=== PATIENT | male | born 1985 | race Caucasian/White ===

== ENCOUNTER 2017-05-06 18:27 | Emergency (ER) | payer OTHER, BC ==
[~2017-05-06] VITALS: Ht 182.9 cm; Wt 78.7 kg
[2017-05-06 18:34] VITALS: TEMP 37.6; Ht 182.9 cm; Wt 78.7 kg
[2017-05-06] MEDS ORDERED: IBUPROFEN 600 MG TAB PO STA (18:54)
[2017-05-06] MEDS ORDERED: DIPHTHERIA/TETANUS/PERTUSSIS 0.5 ML SYR/VIAL IM. ONE (19:00)
--- NOTE | 2017-05-06 19:32 | DIAGNOSTIC IMAGING REPORT ---
RIGHT ELBOW 3 VIEWS CLINICAL HISTORY: Right elbow injury. FINDINGS: 3 views of the right elbow are obtained. No prior studies are available for comparison at the time of dictation. The skeletal structures are well mineralized. There is a distracted an comminuted fracture through the olecranon process of the ulna. Fragments are distracted by approximately 1.3 cm. No additional fracture is seen. There is no elbow dislocation. A joint effusion is noted. Significant soft tissue edema is present around the elbow, greatest dorsally and medially. IMPRESSION: Distracted and comminuted fracture through the olecranon process of the ulna as above. Electronically signed by: Ian Ortega M.D. 05/06/2017 7:30 PM Dictated Date/Time: 05/06/2017 7:27 PM
--- NOTE | 2017-05-06 19:43 | DIAGNOSTIC IMAGING REPORT ---
RIGHT ANKLE 3 VIEWS CLINICAL HISTORY: Right ankle injury. FINDINGS: 3 views of the right ankle are obtained. No prior studies are available for comparison at the time of dictation. The skeletal structures are well mineralized. No fracture is seen. The ankle mortise is intact. No joint effusion is identified. Soft tissue injury and edema is noted along the lateral aspect of the calf. No subcutaneous gas is identified and no radiodense foreign body is seen. IMPRESSION: Lateral soft tissue injury. No right ankle fracture is identified. Electronically signed by: Ian Ortega M.D. 05/06/2017 7:42 PM Dictated Date/Time: 05/06/2017 7:37 PM
[2017-05-06] MEDS ORDERED: BACITRACIN OINT 15 GM TUBE ONE (19:52)
[2017-05-06] MEDS ORDERED: OXYC1TAB3 PO (20:09)
[2017-05-06] MEDS ORDERED: OXYCODONE IR HOME PACK PO ONE (20:15)
[2017-05-06 21:09] VITALS: BP 141/84; PULSE 94; O2SAT 100
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
== END 2017-05-06 21:10 | disposition home or self-care (01) ==
LOC: C.EDB 18:29 → EDSEX 18:29 → C.EDD 21:10
DX: S52.021A Displaced fracture of olecranon process without intraarticular extension of right ulna, initial encounter for closed fracture (principal); T24.201A Burn of second degree of unspecified site of right lower limb, except ankle and foot, initial encounter; V29.9XXA Motorcycle rider (driver) (passenger) injured in unspecified traffic accident, initial encounter; Z87.891 Personal history of nicotine dependence; Z23 Encounter for immunization

== ENCOUNTER → 2017-05-08 | Outpatient (CLI) | payer OTHER, BC ==
[~2017-05-08] MED LIST: CEPH500C2 PO; OXYC-57 PO; OXYC1TAB3 PO; SILV1CRE73 TOP
[2017-05-08 17:43] LABS: BASO % 0.4 %; BASO ABS # 0.04 K/uL (0-0.2); EOS % 2.5 %; HEMATOCRIT 41.4 % (42-52); IG% 0.1 %; LYMPH % 23.1 %; LYMPH ABS # 2.27 K/uL (1.2-3.4); MEAN CELL VOLUME 90.6 fL (80-100); MEAN CORPUSCULAR HEMOGLOBIN 30.4 pg (25-34); MEAN PLATELET VOLUME 10.7 fL (7.4-10.4); MONO % 11.8 %; NEUT % 62.1 %; PLATELET COUNT 214 K/uL (130-400); RED BLOOD COUNT 4.57 M/uL (4.7-6.1); WHITE BLOOD COUNT 9.81 K/uL (4.8-10.8)
[2017-05-08 17:54] LABS: URINE APPEARANCE CLEAR (CLEAR); URINE BILIRUBIN NEG (NEG); URINE COLOR YELLOW; URINE NITRITE NEG (NEG); URINE SPECIFIC GRAVITY 1.012 (1.000-1.030); UROBILINOGEN NEG (NEG)
[2017-05-08 17:56] LABS: PROTHROMBIN TIME (PATIENT) 10.7 SECONDS (9.0-12.0)
[2017-05-08 18:06] LABS: BLOOD UREA NITROGEN 9 mg/dl (7-18); BUN/CREATININE RATIO 9.6 (10-20); CALCIUM 9.3 mg/dl (8.5-10.1); CARBON DIOXIDE 27 mmol/L (21-32); CHLORIDE 100 mmol/L (98-107); CREATININE 0.95 mg/dl (0.60-1.40); GLUCOSE 94 mg/dl (70-99); POTASSIUM 3.9 mmol/L (3.5-5.1); SODIUM 134 mmol/L (136-145)
--- NOTE | 2017-05-08 18:07 | DIAGNOSTIC IMAGING REPORT ---
CHEST 2 VIEWS ROUTINE CLINICAL HISTORY: Preoperative chest COMPARISON STUDY: No previous studies for comparison. FINDINGS: The cardiac and mediastinal contours are normal. There is no evidence of focal pulmonary consolidation. There is no evidence of failure. No pleural effusions are visualized.[ IMPRESSION: No active disease in the chest. Electronically signed by: Lonny Trimble M.D. 05/08/2017 6:05 PM Dictated Date/Time: 05/08/2017 6:05 PM
[2017-05-08 18:15] LABS: MANUAL MICROSCOPIC REQUIRED? NO; REVIEW REQ? NO
[2017-05-08 18:25] LABS: COMPLETE YES; MEAN CORPUSCULAR HGB CONC 33.6 g/dl (32-36)
== END | disposition home or self-care (01) ==
LOC: C.LAB 17:10
PROVIDERS: ATTEND Orthopaedic Surgery Sports Medicine
DX: S52.021A Displaced fracture of olecranon process without intraarticular extension of right ulna, initial encounter for closed fracture (principal); X58.XXXA Exposure to other specified factors, initial encounter

== ENCOUNTER 2017-05-09 08:17 | Day surgery (SDC) | payer OTHER, BC ==
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
[~2017-05-09] VITALS: Ht 185.4 cm; Wt 91.0 kg
[~2017-05-09 08:17] MED LIST changes: +ATROPINE SULFATE 0.1 MG/ML 5ML SYR IV PRN; +CEFAZOLIN 2000 MG/60 ML D5W IV SCH; -CEPH500C2 PO; +EpHEDrine SULFATE INJ 50 MG/ML AMP IV PRN; +FENTANYL CITRATE INJ 50 MCG/1 ML 2 ML VIAL IV PRN; +HYDROmorphone INJ 1 MG/ML SYR IV PRN; +ONDANSETRON INJ 2 MG/ML 2 ML VIAL IV PRN; -OXYC-57 PO; -SILV1CRE73 TOP; +[UNRECOGNIZED DRUG - REMARK] SCH
[2017-05-09] MEDS ORDERED: OXYC1TAB3 PO (08:44)
[2017-05-09 08:50] VITALS: BP 142/95; PULSE 89; TEMP 37.3; O2SAT 98; Ht 185.4 cm; Wt 91.0 kg
--- NOTE | 2017-05-09 11:19 | History & Physical Bridge Note ---
H&P Re-Evaluation Bridge Note: I have examined the patient, reviewed the History & Physical and in the interval since the performance of the History & Physical I have noted the following changes of clinical significance: No changes noted
[2017-05-09] MEDS ORDERED: NURSING VERBAL MED ORDER ONE (11:30)
[2017-05-09] MEDS ORDERED: FENTANYL CITRATE INJ 50 MCG/1 ML 2 ML VIAL ONE ×2 (12:34→15:15)
[2017-05-09] MEDS ORDERED: MIDAZOLAM HCL 1 MG/ML 2ML VIAL ONE ×2 (12:34)
[2017-05-09] MEDS ORDERED: ROPIVACAINE 0.5% 5 MG/ML 30 ML VIAL ONE (12:40)
[2017-05-09] MEDS ORDERED: PROPOFOL IV EMULSION 10 MG/ML 20 ML VIAL IV ONE (12:46)
[2017-05-09] MEDS ORDERED: LIDOCAINE HCL 2% 2 ML VIAL (20MG/ML) ONE (12:47)
[2017-05-09] MEDS ORDERED: DEXAMETHASONE SOD INJ 4 MG/ML VIAL ONE (12:47)
[2017-05-09] MEDS ORDERED: ONDANSETRON INJ 2 MG/ML 2 ML VIAL ONE (12:47)
[2017-05-09] MEDS ORDERED: BACITRACIN 50000 UNIT VIAL IR ONE (14:31)
[2017-05-09] MEDS ORDERED: BACITRACIN OP OINT 3.5 GM TUBE TOP ONE (14:32)
[2017-05-09] MEDS ORDERED: BACITRACIN OINT 15 GM TUBE ONE (14:50)
--- NOTE | 2017-05-09 15:31 | DIAGNOSTIC IMAGING REPORT ---
INTRAOPERATIVE RIGHT ELBOW 2 VIEWS CLINICAL HISTORY: Olecranon fracture COMPARISON STUDY: 05/06/2017 FINDINGS: 2 intraoperative fluoroscopic spot images are provided for interpretation. 62 seconds of fluoroscopic time was utilized. There is internal fixation of the patient's olecranon fracture utilizing a qdycqu-[id number]-kyxiz tension band technique. IMPRESSION: Internally fixated olecranon fracture in near normal anatomic alignment Electronically signed by: Lonny Trimble M.D. 05/09/2017 3:30 PM Dictated Date/Time: 05/09/2017 3:29 PM
[2017-05-09] MEDS ORDERED: ONDANSETRON INJ 2 MG/ML 2 ML VIAL IV PRN (15:45)
[2017-05-09] MEDS ORDERED: MoRPHine SULFATE 2 MG/ML CARP IV PRN (15:45)
[2017-05-09] MEDS ORDERED: ACETAMINOPHEN 325 MG TAB PO PRN (15:45)
[2017-05-09] MEDS ORDERED: OXYCODONE/ACETAMINOPHEN 5-325 TAB PO PRN ×2 (15:45)
[2017-05-09] MEDS ORDERED: OXYC-57 PO (15:48)
--- NOTE | 2017-05-09 16:00 | Discharge Instructions ---
Discharge Instructions Date of Service May 09, 2017. Visit Reason for Visit: Right Elbow Olecranon Fracture Discharge Discharge Diagnosis / Problem: Right Olecranon Fracture Discharge Goals Goal(s): Decrease discomfort, Improve function Activity Recommendations Activity Limitations: per Instructions/Follow-up section Weightbearing Status: Right non-weightbearing Anesthesia . Post Anesthesia Instructions: If you have had General Anesthesia or IV Sedation: * Do not drive today. * Resume driving when surgeon permits. * Do not make important decisions or sign legal documents today. * Call surgeon for: 1. Temperature elevations greater than 101 degrees F. 2. Uncontrollable pain. 3. Excessive bleeding. 4. Persistent nausea and vomiting. 5. Medication intolerance (nausea, vomiting or rash). * For nausea and vomiting use only clear liquids such as: tea, soda, bouillon until nausea subsides, then gradually increase diet as tolerated. * If you have any concerns or questions, call your surgeon's office. If physician is unavailable and it is an emergency, call 911 or go to the nearest emergency room. . Instructions / Follow-Up Instructions / Follow-Up Do ot apply weight on the elbow or forearm. Keep splint clean and dry. Use sling when up ambulating. You may adjust the sling as needed. Shower only if you keep the Splint/Dressing covered with a waterproof covering. If you soak the splint/dressing accidentally, call the office for a dressing change. Your fingers may have swelling from the surgery. Call the office if you are having increased numbness or tingling in the fingers Call the office if you are having increased pain that is not covered by your pain medication, or having fever 101.5 or greater. Continue to treat your abrasions with triple antibiotic ointment and 4x4 gauze to cover the abrasions Follow up with Dr Lawton in 2 weeks from the day of surgery. Call for appointment. [phone] Diet Recommendations Recommended Home Diet: resume previous diet Procedures Procedures Performed: Right Olecranon Fracture Open Reduction Internal Fixation Pending Studies Studies pending at discharge: no Medical Emergencies . Who to Call and When: Medical Emergencies: If at any time you feel your situation is an emergency, please call 911 immediately. . Non-Emergent Contact Non-Emergency issues call your: Surgeon Call Non-Emergent contact if: temperature is above 101.5, your pain is not controlled, your pain is worsening, wound has increased drainage, wound has increased redness . . "Provider Documentation" section prepared by Phillip Arellano. . [place] Drug Monitoring Program Search Results: patient reviewed within database, no issues identified
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
--- NOTE | 2017-05-09 16:43 | Anesthesiology Progress Note ---
Anesthesia Post Op Note Date & Time May 09, 2017 at 16:43 Vital Signs Pain Intensity: 0 Vital Signs Past 12 Hours Date Time Temp Pulse Resp B/P (MAP) Pulse Ox O2 Delivery O2 Flow Rate FiO2 05/09/17 16:39 36.8 05/09/17 16:38 84 16 05/09/17 16:38 82 16 98 05/09/17 16:36 132/92 05/09/17 16:33 82 17 05/09/17 16:33 83 17 97 05/09/17 16:31 136/89 05/09/17 16:28 81 17 05/09/17 16:28 80 17 96 05/09/17 16:27 85 16 05/09/17 16:27 81 16 99 05/09/17 16:26 135/93 05/09/17 16:22 78 24 97 05/09/17 16:22 77 24 05/09/17 16:21 127/91 05/09/17 16:17 79 16 93 05/09/17 16:17 76 16 05/09/17 16:16 134/84 05/09/17 16:15 77 16 05/09/17 16:15 77 16 05/09/17 16:11 134/86 05/09/17 16:10 76 15 05/09/17 16:10 77 15 99 05/09/17 16:09 75 15 05/09/17 16:09 75 15 100 05/09/17 16:06 130/91 05/09/17 16:04 75 14 05/09/17 16:04 74 14 100 05/09/17 16:01 132/86 05/09/17 15:59 74 10 100 05/09/17 15:59 75 10 05/09/17 15:56 140/92 05/09/17 15:54 88 16 05/09/17 15:54 93 16 100 05/09/17 15:51 138/92 05/09/17 15:50 135/99 05/09/17 15:49 79 16 05/09/17 15:49 79 16 100 05/09/17 15:49 37.2 82 17 130/99 100 Mask 10 05/09/17 08:50 37.3 89 18 142/95 (111) 98 Room Air Notes Mental Status: alert / awake / arousable, participated in evaluation Pt Amnestic to Procedure: Yes Nausea / Vomiting: adequately controlled Pain: adequately controlled Airway Patency, RR, SpO2: stable & adequate BP & HR: stable & adequate Hydration State: stable & adequate Anesthetic Complications: no major complications apparent Block working well in pacu
[2017-05-09 16:45] VITALS: BP 133/77; PULSE 82; TEMP 36.5; O2SAT 98
[2017-05-09 17:08] VITALS: BP 132/76; PULSE 78; O2SAT 98
[2017-05-09 17:45] VITALS: BP 136/90; PULSE 82; TEMP 36.5; O2SAT 95
== END 2017-05-09 17:50 | disposition home or self-care (01) ==
LOC: C.ACU 08:17
PROVIDERS: ATTEND Orthopaedic Surgery Sports Medicine
DX: S52.021A Displaced fracture of olecranon process without intraarticular extension of right ulna, initial encounter for closed fracture (principal); V29.40XA Motorcycle driver injured in collision with unspecified motor vehicles in traffic accident, initial encounter

== ENCOUNTER 2017-06-12 18:42 | Emergency (ER) | payer OTHER, BC ==
[~2017-06-12] VITALS: Ht 185.4 cm; Wt 76.7 kg
[~2017-06-12 18:42] MED LIST changes: -ATROPINE SULFATE 0.1 MG/ML 5ML SYR IV PRN; -CEFAZOLIN 2000 MG/60 ML D5W IV SCH; -EpHEDrine SULFATE INJ 50 MG/ML AMP IV PRN; -FENTANYL CITRATE INJ 50 MCG/1 ML 2 ML VIAL IV PRN; -HYDROmorphone INJ 1 MG/ML SYR IV PRN; -ONDANSETRON INJ 2 MG/ML 2 ML VIAL IV PRN; +OXYC-57 PO; -OXYC1TAB3 PO; -[UNRECOGNIZED DRUG - REMARK] SCH
[2017-06-12 18:57] VITALS: TEMP 36.8; Ht 185.4 cm; Wt 76.7 kg
[2017-06-12] MEDS ORDERED: SILV1CRE73 TOP (19:09)
[2017-06-12] MEDS ORDERED: CEPHALEXIN MONOHYDRATE 250 MG CAP PO ONE (19:30)
[2017-06-12] MEDS ORDERED: CEPH500C2 PO (19:34)
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
[2017-06-12 20:03] VITALS: BP 159/106; PULSE 70; O2SAT 99
== END 2017-06-12 20:36 | disposition home or self-care (01) ==
LOC: C.EDB 18:44
DX: L08.9 Local infection of the skin and subcutaneous tissue, unspecified (principal); S81.801D Unspecified open wound, right lower leg, subsequent encounter; V29.9XXD Motorcycle rider (driver) (passenger) injured in unspecified traffic accident, subsequent encounter; Z87.891 Personal history of nicotine dependence